=== PATIENT | female | born 1985 | race Caucasian/White ===

== ENCOUNTER 2024-01-16 14:18 | Outpatient (CLI) | payer MEDICAID, SELFPAY ==
[2024-01-16 16:53] LABS: Chlamydia DNA Amplified* NOT DETECTED (No Detected); GC DNA Amplified* NOT DETECTED (No Detected)
== END 2024-01-16 14:19 | disposition home or self-care (01) ==
PROVIDERS: PCP Internal Medicine; Visit Provider Registered Nurse
DX: Z11.3 Encounter for screening for infections with a predominantly sexual mode of transmission (principal)
CPT/HCPCS: 86592; 86703; 86803; 87340; 87491; 87591